=== PATIENT | male | born 1960 | race Caucasian/White ===

== ENCOUNTER 2017-10-22 11:33 | Emergency (ER) | payer BC ==
[2017-10-22 12:38] VITALS: O2SAT 94
[2017-10-22 12:43] LABS: BASOPHIL % 0.2 % (0.0-0.4); Basophil (Absolute #) 0.02 (0-0.4); Eosinophil % 0.7 % (0.00-5.0); Eosinophil (Absolute #) 0.07 (0-0.5); Granulocyte Absolute (ANC) 7.64 (1.4-6.9); Granulocytes % 75.7 % (36.0-66.0); Hematocrit 41.2 % (42-50); Hemoglobin 13.7 gm/dl (12.5-18.0); Lymphocyte (Absolute #) 1.66 (1.0-4.6); Lymphocytes % 16.5 % (24.0-44.0); Mean Cell Volume 97.9 fl (78-100); Mean Corpuscular Hemoglobin 32.5 pg (26-32); Mean Corpuscular Hgb Concent. 33.3 g/dl (32-36); Mean Platelet Volume 8.9 fl (6-9.5); Monocytes % 6.9 % (0.0-12.0); Platelet Count 304 K/mm3 (150-450); Red Blood Count 4.21 M/mm3 (4.1-5.6); Red Cell Distribution Width 13.4 % (11.5-14.0); White Blood Count 10.1 K/mm3 (4.0-10.5)
[2017-10-22] MEDS ORDERED: Rocephin 1000 MG INJ IM ONE (12:43)
[2017-10-22] MEDS ORDERED: Rocephin 1000 MG INJ ONE (12:51)
--- NOTE | 2017-10-22 13:04 | ERPHSYRPT ---
- History of Present Illness Time Seen by Provider: 10/22/17 12:58 Source: patient Exam Limitations: no limitations Patient Subjective Stated Complaint: pt states he has right rib pain from coughing that started a few days ago. Triage Nursing Assessment: pt pink, warm, dry, no deformity to right ribs noted. lung sounds equal and clear. Physician History: pt states he has right rib pain from coughing that started a few days ago. Timing/Duration: day(s) (2-3 days) Associated Symptoms: cough, chills, fever Allergies/Adverse Reactions: No Known Drug Allergies Allergy (Unverified 10/22/17 11:49) Home Medications: Methotrexate Sodium [Methotrexate] 2.5 mg PO DAILY 10/22/17 [History] Hx Tetanus, Diphtheria Vaccination/Date Given: Yes (uinknown) Hx Influenza Vaccination/Date Given: Yes Hx Pneumococcal Vaccination/Date Given: No Immunizations Up to Date: Yes - Review of Systems Constitutional: Fever, Chills Eyes: No Symptoms Ears, Nose, & Throat: No Symptoms Respiratory: Cough, No Dyspnea Cardiac: Chest Pain (right side lower rib cage pain), No Edema, No Syncope Abdominal/Gastrointestinal: No Abdominal Pain, No Nausea, No Vomiting, No Diarrhea Genitourinary Symptoms: No Dysuria Musculoskeletal: No Back Pain, No Neck Pain Skin: No Rash Neurological: No Dizziness, No Focal Weakness, No Sensory Changes Psychological: No Symptoms Endocrine: No Symptoms All Other Systems: Reviewed and Negative - Past Medical History Pertinent Past Medical History: Yes Other Medical History: psorisis - Past Surgical History Past Surgical History: Yes Gastrointestinal: Appendectomy - Social History Smoking Status: Never smoker Exposure to second hand smoke: No Drug Use: none Patient Lives Alone: Yes - Nursing Vital Signs Nursing Vital Signs: Initial Vital Signs Temperature 99.0 F 10/22/17 11:44 Pulse Rate 91 H 10/22/17 11:44 Respiratory Rate 20 10/22/17 11:44 Blood Pressure 146/98 10/22/17 11:44 O2 Sat by Pulse Oximetry 96 10/22/17 11:44 Pain Scale Pain Intensity 8 - Physical Exam General Appearance: no apparent distress, alert Eye Exam: PERRL/EOMI, eyes nml inspection Ears, Nose, Throat Exam: normal ENT inspection, TMs normal, pharynx normal, moist mucous membranes Neck Exam: normal inspection, non-tender, supple, full range of motion Respiratory Exam: crackles/rales (right lower lung area), rhonchi, No respiratory distress Cardiovascular Exam: regular rate/rhythm, normal heart sounds, normal peripheral pulses Gastrointestinal/Abdomen Exam: soft, normal bowel sounds, No tenderness, No mass Back Exam: normal inspection, normal range of motion, No CVA tenderness, No vertebral tenderness Extremity Exam: normal inspection, normal range of motion, pelvis stable Neurologic Exam: alert, oriented x 3, cooperative, normal mood/affect, nml cerebellar function, nml station & gait, sensation nml, No motor deficits Skin Exam: normal color, warm, dry, No rash Lymphatic Exam: No adenopathy SpO2: 94 Oxygen Delivery: Room Air - Course Nursing assessment & vital signs reviewed: Yes - Radiology Exams Chest X-ray Interpretation: Reviewed by me (right lower lung infiltrate) Ordered Tests: Active Orders 24 hr Category Date Time Status CHEST 2 VIEWS (PA AND LAT) Stat Exams 10/22/17 12:12 Taken CBC W DIFF Stat Lab 10/22/17 12:23 Completed Medication Summary Discontinued Medications Generic Name Dose Route Start Last Admin Trade Name Sageq PRN Reason Stop Dose Admin Ceftriaxone Sodium 1,000 mg 10/22/17 12:43 Rocephin 1000 Mg Inj IM 10/22/17 12:44 STAT ONE Ceftriaxone Sodium Confirm 10/22/17 12:51 Rocephin 1000 Mg Inj Administered 10/22/17 12:52 Dose 1,000 mg .ROUTE .[employer] Lab/Rad Data: Laboratory Result Diagrams 10/22/17 12:23 Laboratory Results 10/22/17 Range/Units 12:23 WBC 10.1 (4.0-10.5) K/mm3 RBC 4.21 (4.1-5.6) M/mm3 Hgb 13.7 (12.5-18.0) gm/dl Hct 41.2 L (42-50) % MCV 97.9 (78-100) fl MCH 32.5 H (26-32) pg MCHC 33.3 (32-36) g/dl RDW 13.4 (11.5-14.0) % Plt Count 304 (150-450) K/mm3 MPV 8.9 (6-9.5) fl Gran % 75.7 H (36.0-66.0) % Lymphocytes % 16.5 L (24.0-44.0) % Monocytes % 6.9 (0.0-12.0) % Eosinophils % 0.7 (0.00-5.0) % Basophils % 0.2 (0.0-0.4) % Basophils # 0.02 (0-0.4) - Progress Progress: improved, pain not gone completely Counseled pt/family regarding: lab results, diagnosis, need for follow-up, rad results - Departure Time of Disposition: 13:00 Departure Disposition: Home Clinical Impression: Right lower lobe pneumonia Qualifiers: Pneumonia type: due to unspecified organism Qualified Code(s): J18.1 - Lobar pneumonia, unspecified organism Condition: Stable Critical Care Time: No Referrals: PROSPER BIRMINGHAM MD [Primary Care Provider] - Instructions: Pneumonia, Adult (DC) Additional Instructions: Please follow the instructions given to you. Please take your medication as prescribed if given. If symptoms recur or get worse, come back to the emergency room if you cannot reach your primary care physician, or call your primary care physician for an appointment. Again if your symptoms get worse, come back to the emergency room. Thanks for visiting emergency room, and let us take care of you. Prescriptions: Amoxicillin 500 mg PO TID #30 tablet
[2017-10-22 13:18] VITALS: BP 159/91; PULSE 92
--- NOTE | 2017-10-22 21:30 | XRAY ---
Indication: Cough and congestion. Comparison: December 24, 2010. PA/lateral chest demonstrates stable right base subsegmental atelectasis/scarring and new left base infiltrate/atelectasis. Remaining heart and lungs unremarkable. Bony thorax intact.
== END 2017-10-22 13:17 | disposition home or self-care (01) ==
LOC: ED 11:33
DX: J18.1 Lobar pneumonia, unspecified organism (principal); R05 Cough; R07.81 Pleurodynia
CPT/HCPCS: 36415; 71046; 85025; 96372; 99284; J0696